=== PATIENT | female | born 1995 | race Two or more races ===

== ENCOUNTER 2020-06-19 14:41 | Emergency (ER) | payer OTHER ==
[~2020-06-19] VITALS: Ht 167.6 cm; Wt 90.7 kg
--- NOTE | 2020-06-19 15:06 | NUR ---
BIBS FROM HOME TO ER BED 2. AAOX4. NOT IN RESP DISTRESS, AMBULATORY. CAME IN FOR R FACIAL, R NECK AND R ARM NUMBENESS X 1HR PIPE CAULKER. PT ALSO COMPLAINING OF R SHOULDER PAIN WHICH ALSO STARTED 1 HR PIPE CAULKER. NO NEURO DEFICIT NOTED. MADE AWARE. AWAITING FURTHER ORDERS
--- NOTE | 2020-06-19 15:43 | NUR ---
PT OUT TO CT ON [facility].
--- NOTE | 2020-06-19 17:16 | NUR ---
Patient discharged to home in stable condition. Written and verbal after care instructions given. Patient verbalizes understanding of instruction. Pt ambulatory with a steady gait
[2020-06-19 17:19] VITALS: BP 128/82
== END 2020-06-19 17:19 | disposition home or self-care (01) ==
LOC: ER 14:48
DX: G43.909 Migraine, unspecified, not intractable, without status migrainosus (principal); M79.604 Pain in right leg
CPT/HCPCS: 70450-TC; 93971-TC

== ENCOUNTER 2021-03-07 19:59 | Emergency (ER) | payer OTHER ==
[~2021-03-07] VITALS: Ht 167.6 cm; Wt 88.9 kg
--- NOTE | 2021-03-07 21:14 | NUR ---
BIBS FROM HOME TO ER BED 7. AAOX4. NOT IN RESP DISTRESS. AMBUALTORY. CAME IN FOR FEELING OF FAINTING. PER PT SHE WAS POSITIVE FOR COVID SINCE MONDAY. 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 WAS AT THE BEDSIDE FOR EVAL. ORDERS RECEIVED, NOTED AND CARRIED OUT.
[2021-03-07 21:27] LABS: BASOPHILS % (AUTO) 0.1 % (0.0-2.0); EOSINOPHILS % (AUTO) 0.2 % (0.0-6.0); HEMATOCRIT 41 % (33-45); HEMOGLOBIN 13.6 g/dL (11.5-14.8); LYMPHOCYTES # (AUTO) 1.2 K/uL (0.8-4.8); LYMPHOCYTES % (AUTO) 39.2 % (20.0-44.0); MEAN CORPUSCULAR HGB CONC 34 g/dl (31.0-36.0); MEAN CORPUSCULAR VOLUME 84 fL (82-100); MONOCYTES # (AUTO) 0.4 K/uL (0.1-1.30); MONOCYTES % (AUTO) 14.1 % (2.0-12.0); NEUTROPHILS # (AUTO) 1.4 K/uL (1.8-8.9); NEUTROPHILS % (AUTO) 46.4 % (43.0-81.0); PLATELET COUNT (AUTO) 125 K/uL (150-450); RED BLOOD CELL COUNT(AUTO) 4.84 MIL/uL (4.0-5.2)
[2021-03-07 21:40] LABS: CALCIUM, SERUM 8.2 mg/dL (8.5-10.1); CARBON DIOXIDE 28 mmol/L (21-32); CHLORIDE 103 mmol/L (98-107); GLUCOSE 130 mg/dL (74-106); SODIUM SERUM 141 mmol/L (136-145); UREA NITROGEN, BLOOD 12 mg/dL (7-18)
[2021-03-07 21:41] LABS: D-DIMER 0.41 mg/L(FEU (0.17-0.50)
[2021-03-07 21:53] LABS: ALANINE AMINOTRANSFERASE 103 U/L (12-78); ALBUMIN 3.2 g/dL (3.4-5.0); ALKALINE PHOSPHATASE 65 U/L (46-116); ASPARTATE AMINOTRANSFERASE 81 U/L (15-37); BILIRUBIN,TOTAL 0.3 mg/dL (0.2-1.0)
[2021-03-07 21:56] LABS: C-REACTIVE PROTEIN 0.5 mg/dL (0.0-0.9); CREATINE KINASE, TOTAL 65 U/L (26-192); FERRITIN 511 ng/mL (8-388)
[2021-03-07] MEDS ORDERED: DEXAMETHASONE SOD PHOSPHATE 6 MG in IV D5W 50 ML IV ONE (22:00)
[2021-03-07] MEDS ORDERED: DEXAMETHASONE SOD PHOSPHATE 10 MG/ML VIAL ONE (22:06)
[2021-03-07 22:33] VITALS: BP 122/70
--- NOTE | 2021-03-07 22:33 | NUR ---
Patient discharged to home in stable condition. Written and verbal after care instructions given. Patient verbalizes understanding of instruction.IV removed. Catheter intact and site benign. Pressure and 4x4 applied to site. No bleeding noted. Pt ambulatory with a steady gait
== END 2021-03-07 22:34 | disposition home or self-care (01) ==
LOC: ER 20:03
DX: U07.1 COVID-19 (principal); R06.00 Dyspnea, unspecified
CPT/HCPCS: 36415; 71045; 80053; 82550; 82728; 83605; 83615; 83880; 84145; 84484; 85025; 85378; 85730; 86140; 93005; 96365; 99285; J1100 ×2; J7060